=== PATIENT | female | born 1975 | race Caucasian/White ===

== ENCOUNTER 2021-10-24 10:58 | Emergency (ER) | payer OTHER ==
[~2021-10-24] VITALS: Ht 182.9 cm; Wt 88.5 kg
[~2021-10-24 10:58] MED LIST: ACET250; AMOX1XR PO; AMOX500 PO; CEPH500 PO; CIPR500 PO; CONEST.625 PO; CRUTCH3 USE; CRUTCH4 USE; CYCL10 PO; CYMBALTA30 M1 PO; Cleocin HCl300 MG PO; DIAZ5 PO; FAMO20 PO; FOLI1 PO; HORMONE REPLACEMENT; HYDACE5 PO; HYDACE5325 PO; HYDACE7.5 PO; HYDGUAL120 PO; HYDSUL200 PO; IBUP600 PO; IBUP800 PO; Inderal80 MG; METO10 PO; METR500 PO; MOBIC15 MG PO; NAPR500 PO; Naprosyn500 MG PO; Norco 10-325 T1 EACH PO; OMEP20ER PO; ONDA4ODT MM; OXYACE5T PO; OXYACE7.5T PO; PENVK500 PO; PREG75 PO; PROACE100 PO; PROM25 PO; RXCYCL10 PO; RXHYDACE PO; RXIBUP800 PO; RXOXYACE PO; RXPROM25 PO; RXTOBROPSO OP; SULTRIDS PO; SUMA25 PO; TIZA4 PO; TRAM50 PO; [UNRECOGNIZED DRUG - REMARK]
[2021-10-24 11:44] LABS: BASOPHILS ABSOLUTE AUTO 0.02 K/mm3 (0.00-0.23); BASOPHILS PERCENT AUTO 1 % (0-2); EOSINOPHILS ABSOLUTE AUTO 0.12 K/mm3 (0.00-0.68); EOSINOPHILS PERCENT AUTO 3 % (0-6); Hematocrit 39.8 % (33.0-51.0); Hemoglobin 13.3 g/dL (11.5-16.0); IMMATURE GRAN PERCENT AUTO 0 % (0-1); LYMPHOCYTES ABSOLUTE AUTO 1.55 K/mm3 (0.84-5.20); LYMPHOCYTES PERCENT AUTO 43 % (21-46); MONOCYTES ABSOLUTE AUTO 0.32 K/mm3 (0.16-1.47); MONOCYTES PERCENT AUTO 9 % (4-13); Mean Corpuscular HGB 30.3 pg (26.0-34.0); Mean Corpuscular HGB Conc 33.4 g/dL (31.5-36.5); Mean Corpuscular Volume 91 fL (80-100); Mean Platelet Volume 12.1 fL (9.1-12.4); NEUTROPHILS ABSOLUTE AUTO 1.61 K/mm3 (1.96-9.15); NEUTROPHILS PERCENT AUTO 45 % (41-73); Platelet Count 209 K/mm3 (150-400); RDW Coefficient Variation 12.6 % (11.7-14.2); RDW Standard Deviation 41.5 fL (35.1-46.3); Red Blood Cell Count 4.39 M/mm3 (3.80-5.20); White Blood Cell Count 3.62 K/mm3 (4.00-11.30)
[2021-10-24 12:08] LABS: Calcium, Blood 9.2 mg/dL (8.5-10.1); Creatinine, Blood 0.87 mg/dL (0.40-1.00); Potassium, Blood 3.7 mmol/L (3.5-5.5)
[2021-10-24 12:09] LABS: Albumin, Blood 3.6 g/dL (3.4-5.0); Albumin/Globulin Ratio 1.1 (0.8-1.8); Bilirubin, Total 0.4 mg/dL (0.1-1.0); Free Thyroxine 1.12 ng/dL (0.70-1.60); Globulin, Blood 3.4 g/dL (2.2-4.0); Thyroid Stimulating Hormone 0.759 uIU/mL (0.360-4.800)
[2021-10-24 12:48] LABS: Bun/Creatinine Ratio 21.8 (12.0-20.0)
[2021-10-24] MEDS ORDERED: KETO10 PO (13:09)
[2021-10-24] MEDS ORDERED: PROP80ER PO (13:13)
== END 2021-10-24 13:53 | disposition home or self-care (01) ==
LOC: ER 10:58
PROVIDERS: Emergency Medicine
DX: R00.2 Palpitations (principal); Z63.79 Other stressful life events affecting family and household; M32.9 Systemic lupus erythematosus, unspecified; I48.91 Unspecified atrial fibrillation; M06.9 Rheumatoid arthritis, unspecified; Z88.8 Allergy status to other drugs, medicaments and biological substances; Z88.1 Allergy status to other antibiotic agents; Z91.010 Allergy to peanuts; Z79.899 Other long term (current) drug therapy; Z98.890 Other specified postprocedural states
CPT/HCPCS: 80053; 84439; 84443; 84484; 85025; 93005; 93010; 93242

== ENCOUNTER 2021-10-27 15:15 | Emergency (ER) | payer OTHER ==
[~2021-10-27] VITALS: Ht 182.9 cm; Wt 88.5 kg
[~2021-10-27 15:15] MED LIST changes: +KETO10 PO; +PROP80ER PO
[2021-10-27 15:57] LABS: BASOPHILS ABSOLUTE AUTO 0.05 K/mm3 (0.00-0.23); BASOPHILS PERCENT AUTO 1 % (0-2); EOSINOPHILS ABSOLUTE AUTO 0.22 K/mm3 (0.00-0.68); EOSINOPHILS PERCENT AUTO 4 % (0-6); Hematocrit 40.1 % (33.0-51.0); Hemoglobin 13.4 g/dL (11.5-16.0); IMMATURE GRAN ABSOLUTE AUTO 0.01 K/mm3 (0.00-0.10); IMMATURE GRAN PERCENT AUTO 0 % (0-1); LYMPHOCYTES ABSOLUTE AUTO 1.78 K/mm3 (0.84-5.20); LYMPHOCYTES PERCENT AUTO 35 % (21-46); MONOCYTES ABSOLUTE AUTO 0.43 K/mm3 (0.16-1.47); MONOCYTES PERCENT AUTO 9 % (4-13); Mean Corpuscular HGB 30.2 pg (26.0-34.0); Mean Corpuscular HGB Conc 33.4 g/dL (31.5-36.5); Mean Corpuscular Volume 91 fL (80-100); Mean Platelet Volume 11.9 fL (9.1-12.4); NEUTROPHILS ABSOLUTE AUTO 2.55 K/mm3 (1.96-9.15); NEUTROPHILS PERCENT AUTO 51 % (41-73); Platelet Count 226 K/mm3 (150-400); RDW Coefficient Variation 12.7 % (11.7-14.2); RDW Standard Deviation 41.6 fL (35.1-46.3); Red Blood Cell Count 4.43 M/mm3 (3.80-5.20); White Blood Cell Count 5.04 K/mm3 (4.00-11.30)
[2021-10-27 16:22] LABS: Albumin/Globulin Ratio 1.2 (0.8-1.8); Bilirubin, Total 0.3 mg/dL (0.1-1.0); Calcium, Blood 9.5 mg/dL (8.5-10.1); Creatinine, Blood 0.87 mg/dL (0.40-1.00); Globulin, Blood 3.2 g/dL (2.2-4.0); Potassium, Blood 3.4 mmol/L (3.5-5.5); Total Protein, Blood 7.2 g/dL (6.4-8.2)
[2021-10-27] MEDS ORDERED: BACL10 PO (16:44)
[2021-10-27] MEDS ORDERED: HYDSUL200 (16:44)
== END 2021-10-27 18:30 | disposition home or self-care (01) ==
LOC: ER 15:15
PROVIDERS: Student in an Organized Health Care Education/Training Program
DX: M94.0 Chondrocostal junction syndrome [Tietze] (principal); M25.50 Pain in unspecified joint; M32.9 Systemic lupus erythematosus, unspecified; I48.91 Unspecified atrial fibrillation; Z79.899 Other long term (current) drug therapy; Z88.8 Allergy status to other drugs, medicaments and biological substances; Z88.1 Allergy status to other antibiotic agents; Z91.010 Allergy to peanuts
CPT/HCPCS: 36415; 71045; 80053; 84484; 85025; 93005; 93010; 96374; 99285-25; J1885